=== PATIENT | male | born 1980 | race African-American/Black ===

== ENCOUNTER 2020-05-11 23:43 | Observation (INO) ==
[2020-05-12] MEDS ORDERED: ONDANSETRON 4 MG/2 ML VIAL IV STA (00:08)
[2020-05-12] MEDS: SODIUM CHLORIDE 0.9% 1,000 ML IV STA ×2 (00:21→00:41)
[2020-05-12] MEDS ORDERED: SODIUM CHLORIDE 0.9% 500 ML IV STA (00:34)
[2020-05-12 00:43] LABS: Basophils # 0.1 10*3/uL (0.0-0.2); Basophils % 0.6 % (0.0-0.8); Eosinophils # 0.2 10*3/uL (0.0-0.87); Eosinophils % 2.7 % (0.00-10.9); Hematocrit 35.7 VOL% (42.0-52.0); Immature Granulocytes % 1.9 %; Immature Granulocytes Absolute 0.16 #; Lymphocytes # 2.1 10*3/uL (1.4-4.0); Lymphocytes % 24.6 % (21.2-54.2); Mean Corpuscular HGB Conc 33.6 GM/DL (32-36); Mean Corpuscular Volume 85.2 FL (87-102); Mean Platelet Volume 11.3 FL (9.6-12.0); Monocytes % 5.2 % (1.7-12.7); Platelet Count 221 T/CUMM (130-400); Red Blood Count 4.19 MC/CUMM (3.8-5.5); Red Cell Distribution Width 12.8 % (9.3-17.3); White Blood Count 8.5 T/CUMM (4-12)
[2020-05-12 00:52] LABS: Alanine Aminotransferase 22 U/L (16-61); Albumin 2.4 G/DL (3.4-5.0); Alkaline Phosphatase 81 U/L (45-117); Aspartate Amino Transferase 17 U/L (0-37); Bilirubin,Total < 0.39 MG/DL (0.2-1.0); Blood Urea Nitrogen 73 MG/DL (7-18); Calcium 8.3 MG/DL (8.5-10.1); Estimated Glom Filtration Rate 15 ML/MIN; Glucose 143 MG/DL (74-106); Osmolality,Calculated 300.5 MOS/KG (273-304); Total Protein 6.7 G/DL (6.4-8.3)
[2020-05-12] MEDS ORDERED: DEXTROSE 50% 25 GM/50 ML VIAL IV PRN (01:30)
[2020-05-12] MEDS ORDERED: ONDANSETRON 4 MG/2 ML VIAL IV PRN (01:30)
[2020-05-12] MEDS ORDERED: GLUCAGON 1 MG VIAL IM PRN (01:30)
[2020-05-12] MEDS ORDERED: ACETAMINOPHEN 325 MG TABLET PO PRN (01:30)
[2020-05-12] MEDS: SODIUM CHLORIDE 0.9% 1,000 ML IV SCH ×2 (01:52→22:37)
[2020-05-12 08:11] LABS: Basophils % 0.6 % (0.0-0.8); Eosinophils # 0.2 10*3/uL (0.0-0.87); Eosinophils % 2.6 % (0.00-10.9); Hematocrit 32.1 VOL% (42.0-52.0); Hemoglobin 10.9 GM/DL (14.0-18.0); Immature Granulocytes % 1.4 %; Immature Granulocytes Absolute 0.09 #; Lymphocytes # 1.5 10*3/uL (1.4-4.0); Lymphocytes % 24.4 % (21.2-54.2); Mean Corpuscular Volume 86.5 FL (87-102); Monocytes % 6.1 % (1.7-12.7); Neutrophils % 64.9 % (38.7-73.9); Platelet Count 209 T/CUMM (130-400); Red Blood Count 3.71 MC/CUMM (3.8-5.5); Red Cell Distribution Width 12.8 % (9.3-17.3); White Blood Count 6.3 T/CUMM (4-12)
[2020-05-12 08:37] LABS: Osmolality,Calculated 306.3 MOS/KG (273-304)
[2020-05-12 08:40] LABS: Albumin 2.2 G/DL (3.4-5.0); Calcium 7.9 MG/DL (8.5-10.1); Osmolality,Calculated 304.4 MOS/KG (273-304); Total Protein 6.2 G/DL (6.4-8.3)
[2020-05-12] MEDS: PANTOPRAZOLE 40 MG TABLET PO SCH (08:48)
[2020-05-12] MEDS: ENOXAPARIN 30 MG/0.3 ML SYRINGE SUBCUT SCH (08:48)
[2020-05-12 11:03] LABS: Amorphous Crystals,Urine Few /HPF (Few); Apearance,Urine CLEAR (Clear); Bacteria,Urine Occasional /HPF (Few); Bilirubin,Urine Negative (Negative); Blood, Urine Moderate mg/dL (Negative); Glucose,Urine (UA) >=500 mg/dL (Negative); Ketones,Urine Negative (Negative); Mucus,Urine Occasional /LPF (Occasional); Nitrite,Urine Negative (Negative); Protein,Urine >=500 MG/DL; RBC,Urine 2 /HPF (0-4); Urine Color Straw (Yellow); Urine Urobilinogen < 2.0 EU/DL (0.2-1.0)
[2020-05-12] MEDS: CALCIUM CARBONATE CHEW 500 MG TABLET PO SCH ×2 (15:33→20:45)
[2020-05-12 16:01] LABS: Barbiturates Screen,Urine Negative (Negative); Benzodiazepines Screen,Urine Negative (Negative); Cannabinoid Screen,Urine Negative (Negative); Opiate Screen,Urine Negative (Negative); Phencyclidine Screen,Urine Negative (Negative)
[2020-05-13 05:30] LABS: Basophils % 0.6 % (0.0-0.8); Eosinophils # 0.1 10*3/uL (0.0-0.87); Eosinophils % 2.2 % (0.00-10.9); Hematocrit 31.5 VOL% (42.0-52.0); Hemoglobin 10.4 GM/DL (14.0-18.0); Immature Granulocytes % 0.8 %; Immature Granulocytes Absolute 0.04 #; Lymphocytes # 1.5 10*3/uL (1.4-4.0); Lymphocytes % 30.2 % (21.2-54.2); Mean Platelet Volume 10.5 FL (9.6-12.0); Monocytes % 7.1 % (1.7-12.7); Neutrophils % 59.1 % (38.7-73.9); Platelet Count 184 T/CUMM (130-400); Red Blood Count 3.58 MC/CUMM (3.8-5.5); Red Cell Distribution Width 12.9 % (9.3-17.3); White Blood Count 4.9 T/CUMM (4-12)
[2020-05-13 05:59] LABS: Calcium 8.3 MG/DL (8.5-10.1); Osmolality,Calculated 302.1 MOS/KG (273-304)
[2020-05-13] MEDS ORDERED: MAGNESIUM SULF RIDER 2 GM in PREMIX 1 EACH IV ONE (08:07)
[2020-05-13] MEDS: PANTOPRAZOLE 40 MG TABLET PO SCH (09:22)
[2020-05-13] MEDS: ENOXAPARIN 30 MG/0.3 ML SYRINGE SUBCUT SCH (09:22)
[2020-05-13] MEDS: CALCIUM CARBONATE CHEW 500 MG TABLET PO SCH ×2 (09:22→16:10)
[2020-05-13] MEDS: SODIUM CHLORIDE 0.9% 1,000 ML IV SCH (16:10)
[2020-05-13 16:28] VITALS: BP 185/92
== END 2020-05-13 15:50 ==
LOC: EDBD → N.ED 23:43 → N.EDINP 23:43 → N.TELES 05-12 03:21
PROVIDERS: ADMIT Internal Medicine; ATTEND Internal Medicine